=== PATIENT | male | born 1940 | race Caucasian/White ===

== ENCOUNTER 2017-08-14 12:13 | Emergency (ER) | payer OTHER ==
[~2017-08-14] VITALS: Ht 172.7 cm; Wt 54.5 kg
[2017-08-14 12:28] VITALS: Ht 172.7 cm; Wt 54.5 kg
[2017-08-14] MEDS ORDERED: [UNRECOGNIZED DRUG - REMARK] (12:29)
[2017-08-14 13:00] LABS: BASOPHILS 0.8 % (0-2); EOSINOPHILS 5.3 % (0-7); HEMATOCRIT 37.4 % (42.0-54.0); HEMOGLOBIN 12.5 g/dL (13.5-17.5); IMMATURE GRANULOCYTES 0.3 % (0-5); LYMPHOCYTES 28.4 % (15-50); MCH 32.2 pg (26.0-34.0); MCHC 33.4 g/dL (31.0-37.0); MCV 96.4 fL (80.0-100.0); MEAN PLATELET VOLUME 9.7 fL (7.4-10.4); MONOCYTES 15.7 % (2-11); NEUTROPHILS 49.5 % (40-80); PLATELET COUNT 252 10x3/uL (130-400); RBC 3.88 10x6/uL (4.20-6.10); RDW 14.3 % (11.5-14.5); WBC 7.6 10x3/uL (4.8-10.8)
[2017-08-14 14:12] LABS: ALBUMIN 3.5 g/dL (3.4-5.0); ALKALINE PHOSPHATASE 63 U/L (46-116); ALT (SGPT) 15 U/L (10-68); BILIRUBIN - TOTAL 0.41 mg/dL (0.2-1.3); CALC OSMOLALITY 289 mosm/kg (275-300); CALCIUM 9.3 mg/dL (8.5-10.1); CARBON DIOXIDE 32.5 mmol/L (21.0-32.0); CHLORIDE - SERUM 104 mmol/L (98-107); CREATININE - SERUM 1.7 mg/dL (0.6-1.3); GLUCOSE 85 mg/dL (74-106); POTASSIUM - SERUM 4.2 mmol/L (3.5-5.1); PROTEIN - SERUM 7.3 g/dL (6.4-8.2); SODIUM 141 mmol/L (136-145); UREA NITROGEN 40 mg/dL (7-18); eGFR NON AFRICAN AMERICAN 42 mL/min (90-120)
[2017-08-14 14:30] LABS: CKMB 1.5 U/L (0.0-3.6); CREATINE KINASE 63 UL (21-232)
[2017-08-14 14:31] LABS: TROPONIN-I < 0.017 ng/mL (0.000-0.060)
[2017-08-14 15:28] LABS: APPEARANCE CLEAR (CLEAR); BILIRUBIN NEGATIVE (NEGATIVE); COLOR YELLOW (YELLOW); GLUCOSE NEGATIVE (NEGATIVE); KETONE NEGATIVE (NEGATIVE); NITRITE NEGATIVE (NEGATIVE); PROTEIN NEGATIVE (NEGATIVE); UROBILINOGEN NORMAL (NORMAL)
[2017-08-14 16:51] VITALS: BP 102/64
== END 2017-08-14 16:26 | disposition home or self-care (01) ==
LOC: D.ER 12:13 → EDBD 12:13 → D.ER 16:26
PROVIDERS: Family Medicine
DX: R42 Dizziness and giddiness (principal); R00.1 Bradycardia, unspecified; N28.9 Disorder of kidney and ureter, unspecified

== ENCOUNTER 2020-06-08 18:27 | Emergency (ER) | payer OTHER ==
[~2020-06-08] VITALS: Ht 172.7 cm; Wt 61.4 kg
[~2020-06-08 18:27] MED LIST: [UNRECOGNIZED DRUG - REMARK]
[2020-06-08 18:39] VITALS: Ht 172.7 cm; Wt 61.4 kg
[2020-06-08] MEDS ORDERED: ULTRAM50 MG PO (20:05)
[2020-06-08] MEDS ORDERED: NAPROXEN250 MG PO (20:05)
[2020-06-08 20:18] VITALS: BP 165/80
== END 2020-06-08 20:13 | disposition home or self-care (01) ==
LOC: D.ER 18:27
DX: S20.212A Contusion of left front wall of thorax, initial encounter (principal); S50.312A Abrasion of left elbow, initial encounter; I10 Essential (primary) hypertension; V89.2XXA Person injured in unspecified motor-vehicle accident, traffic, initial encounter; Y93.9 Activity, unspecified; Y92.9 Unspecified place or not applicable